=== PATIENT | male | born 2000 | race Caucasian/White ===

== ENCOUNTER 2023-01-04 04:32 | Emergency (ER) | payer BC ==
[~2023-01-04] VITALS: Ht 167.6 cm; Wt 76.8 kg
[2023-01-04 04:38] VITALS: BP 140/90
[2023-01-04] MEDS ORDERED: LACT10SO3 PO (05:10)
[2023-01-04] MEDS ORDERED: MAGN296S68 PO (05:11)
== END 2023-01-04 05:25 | disposition home or self-care (01) ==
LOC: ER 04:33
DX: K59.00 Constipation, unspecified (principal)
CPT/HCPCS: 74018; 99283

== ENCOUNTER 2023-07-12 10:41 | Emergency (ER) | payer BC ==
[~2023-07-12] VITALS: Ht 167.6 cm; Wt 81.0 kg
[~2023-07-12 10:41] MED LIST: LACT10SO3 PO; MAGN296S68 PO
[2023-07-12 10:50] VITALS: TEMP 98.2
[2023-07-12 12:03] LABS: BASOPHILS % (AUTO) 0.3 % (0-1); EOSINOPHILS % (AUTO) 0.5 % (0-6); HEMATOCRIT 46.4 % (42.0-52.0); HEMOGLOBIN 15.7 g/dl (14.0-17.9); LYMPHOCYTES # (AUTO) 1.2 X10'3 (1.1-4.8); LYMPHOCYTES % (AUTO) 14.1 % (21-51); MEAN CORPUSCULAR HEMOGLOBIN 29.1 PG (27.0-31.0); MEAN CORPUSCULAR HGB CONC 33.8 g/dL (33.0-36.5); MEAN CORPUSCULAR VOLUME 86.2 FL (78-98); MEAN PLATELET VOLUME 7.8 FL (7.4-10.4); MONOCYTES # (AUTO) 0.5 X10'3 (0-0.9); MONOCYTES % (AUTO) 5.6 % (2-12); NEUTROPHILS # (AUTO) 6.5 X10'3 (1.8-7.7); NEUTROPHILS % (AUTO) 79.5 % (42-75); PLATELET COUNT 313 X10'3 (140-440); RED BLOOD COUNT 5.39 X10'6 (4.70-6.10); RED CELL DISTRIBUTION WIDTH 12.8 % (11.5-14.5); WHITE BLOOD COUNT 8.1 X10'3 (4.5-11.0)
[2023-07-12 12:28] LABS: ALANINE AMINOTRANSFERASE 19 U/L (12-78); ALBUMIN 4.4 G/DL (3.4-5.0); ALBUMIN/GLOBULIN RATIO 1.1 (1.1-1.5); ALKALINE PHOSPHATASE 89 IU/L (46-116); ANION GAP 9 (8-16); ASPARTATE AMINO TRANSFERASE 25 U/L (10-37); BILIRUBIN,TOTAL 1.3 MG/DL (0.1-1.0); BLOOD UREA NITROGEN 11 MG/DL (7-18); BUN/CREATININE RATIO 12.2 (10.0-20.0); CALCIUM 9.5 MG/DL (8.5-10.1); CHLORIDE 101 MMOL/L (99-107); GLUCOSE 92 MG/DL (70-104); LIPASE 24 U/L (16-77); POTASSIUM 3.6 MMOL/L (3.5-5.1); SODIUM 138 MMOL/L (135-145); TOTAL CARBON DIOXIDE 28.2 MMOL/L (24-32); TOTAL PROTEIN 8.4 G/DL (6.4-8.2); eCRCL 113 ML/MIN; eGFR > 90 ML/MIN
[2023-07-12] MEDS ORDERED: iohexol 300mg/ml 100ml inj. ONE (13:03)
[2023-07-12] MEDS ORDERED: BISA10SU60 RC (14:03)
[2023-07-12] MEDS ORDERED: MAGN296S89 PO (14:04)
[2023-07-12 14:47] VITALS: BP 128/92; PULSE 86; RESP 18; O2SAT 100
== END 2023-07-12 14:51 | disposition home or self-care (01) ==
LOC: ER 10:41
DX: K59.00 Constipation, unspecified (principal); Z79.899 Other long term (current) drug therapy
CPT/HCPCS: 36415; 74177; 80053; 83690; 85025; 99285; J3490; Q9967